=== PATIENT | male | born 1985 | race Two or more races ===

== ENCOUNTER 2019-04-07 02:22 | Emergency (ER) | payer OTHER ==
[~2019-04-07] VITALS: Ht 193 cm; Wt 97.5 kg
[2019-04-07] MEDS: IV NORMAL SALINE 1000 ML BAG IV ONE (03:09)
[2019-04-07] MEDS: FLUCONAZOLE 100 MG TABLET PO ONE (03:13)
[2019-04-07] MEDS ORDERED: FLUCONAZOLE 100 MG TABLET ONE (03:14)
--- NOTE | 2019-04-07 03:31 | NUR ---
bilat. upper LE/thighs wrapped in kerlix for pt. comfort, CMS intact/WDL
--- NOTE | 2019-04-07 03:41 | NUR ---
Patient discharged to home in stable conditon. Written and verbal after care instructions given. Patient verbalizes understanding of instructions. Pt. d/c w/ prescription per MD order, d/c papers signed, all belongings w/ pt., ID band removed, ambulated off unit w/ steady gait, NAD
== END 2019-04-07 03:43 | disposition home or self-care (01) ==
LOC: ER 02:24
DX: B35.6 Tinea cruris (principal); R42 Dizziness and giddiness
CPT/HCPCS: A4663; J7030